=== PATIENT | female | born 2000 ===

== ENCOUNTER 2021-06-09 16:09 | Emergency (ER) ==
[2021-06-09] MEDS ORDERED: Lidocaine 1% PF 5 ML VIAL ONE (16:36)
[2021-06-09] MEDS ORDERED: Boostrix 0.5 ML (Tdap) VIAL ONE (16:36)
[2021-06-09] MEDS ORDERED: Bacitracin 1 PK ONE (17:21)
== END 2021-06-09 17:34 | disposition home or self-care (01) ==
LOC: ERS 16:09
DX: S51.012A Laceration without foreign body of left elbow, initial encounter (principal); S80.02XA Contusion of left knee, initial encounter; W19.XXXA Unspecified fall, initial encounter
CPT/HCPCS: 12001; 90471; 90715